=== PATIENT | male | born 1995 | race Hispanic/Latino ===

== ENCOUNTER 2016-05-25 15:29 | Emergency (ER) | payer MEDICAID, OTHER ==
[2016-05-25] MEDS ORDERED: ceFAZolin SODIUM 2 GM in DEXTROSE 5 % IN WATER 100 ML IV ONE ×2 (16:59)
--- NOTE | 2016-05-25 16:59 | ERNOTE ---
Upper Extremity HPI - Narrative Date of Service: 05/25/16 - General Extremities Pain Location: arm: right Time Seen by Provider: 05/25/16 16:11 Source: patient, RN notes reviewed, other - Company representatives Exam Limitations: no limitations - Immun/Allergies/Home Medications Allergies/Adverse Reactions: Allergies Allergy/AdvReac Type Severity Reaction Status Date / Time No Known Allergies Allergy Verified 05/25/16 15:37 Home Medications: HOME MEDICATIONS Albuterol Sulfate [Albuterol Sulfate 0.63 MG/3ML] 0.63 mg IH QID PRN 01/08/13 [ Last Taken 02/13/13] HYDROcodone/ACETAMINOPHEN [[place] 5-325] 1 - 2 tab PO Q6H PRN #20 tab 05/25/16 [ Last Taken Unknown] - History of Present Illness Narrative: 20 y/o male ambulator to the ED for a right arm injury that occurred at work just [employer]. 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 He is experiencing pain and swelling from the mid humerus region to the mid forearm region. He also reports several abrasions and a laceration to the upper arm. He is right handed. Date (Duration): 05/25/16 Occurred: just prior to arrival Location of Incident: work Severity: moderate Method of Injury: Reports: other - crushed Associated Symptoms: Denies: tingling, weakness, numbness distally, loss of feeling, loss of power (rt arm) Other Injuries: Reports: none Review of Systems - Review of Systems Constitutional: Present: no symptoms reported EYE: Present: no symptoms reported ENT: Present: no symptoms reported Respiratory: Present: no symptoms reported Cardiology: Present: no symptoms reported Gastrointestinal/Abdominal: Present: no symptoms reported Genitourinary: Present: no symptoms reported Musculoskeletal: Present: muscle pain, joint pain, joint swelling Skin: Present: change in color. Absent: lesions, lumps Neurological: Absent: weakness, numbness, tingling Endocrine: Present: no symptoms reported Hematologic/Lymphatic: Absent: easy bruising, easy bleeding Psych: Present: no symptoms reported - Patient's Past Medical History Patient History - Medical: No pertinent hx Patient History - Cardiac/Respiratory: Asthma Patient History - Cancer: No Hx of Cancer Patient History - Surgical Procedures: No surgical history Patient History - Other: None - Social History Living Situations: home Psych History: No pertinent hx Smoking Status: Never smoker Alcohol Use: none Drug Use: none - Immunizations Immunizations Up to Date: No - unsure of last tetanus Physical Exam - Physical Exam General Appearance: Present: wd/wn, alert, mild distress, anxious Respiratory: Present: no respiratory distress, no accessory muscle use Cardiovascular/Chest: Present: normal peripheral pulses Peripheral Pulses: N=norm/S=strong/W=weak/B=bound/A=absent: Radial (R): Strong, Radial (L): Strong Extremity Exam: Present: decreased range of motion - right elbow, joint swelling - right elbow, extremity edema - moderate edema to right arm - concentrated more in elbow region Neurological Exam: Present: alert, oriented, normal mood/affect, no motor/ sensory deficits Skin Exam: Present: warm/dry, other - numerous abrasions to right arm, laceration to medial aspect of upper arm, several areas of ecchymosis present ED Progress - Vital Signs Patient's Vital Signs:: I have reviewed the patient's vital signs. Vital Signs: Vital Signs 05/25/16 15:32 Temperature 36.3 C L Pulse Rate 94 Respiratory 12 Rate Blood Pressure 145/80 O2 Sat by Pulse 100 Oximetry - X-Ray X-Ray #1 X-Ray: humerus Interpretation: Reviewed by me X-ray Comments: Humerus RT * FINDINGS/IMPRESSION: 1. There is a probable comminuted fracture of the distal humerus centered at the medial epicondyle region, which is better evaluated on the right elbow films of the same day. Please see its report for additional details. The right humeral diaphysis appears to be intact without definable fracture. 2. Joint spaces are grossly unremarkable, as visualized. 3. Soft tissues are grossly normal. Electronically signed by Bill Schaefer M.D.. X-Ray #2 X-Ray: elbow Interpretation: Reviewed by me X-ray Comments: Elbow Complete Min 3 View RT * There is a severely comminuted fracture of the medial epicondyle of the distal humerus, with multiple small fragments, some of which appear to be displaced distally (maximal distal displacement of approximately 2 cm). On the lateral image, there is a questionable lucency at the level of the tip of the olecranon process. Joint spaces are in gross normal alignment without subluxation or dislocation. Mild elevation of the anterior fat pad suggestive of joint effusion. Soft tissue swelling is noted mainly at the medial aspect of the right arm/elbow, with multiple linear area of air lucency within the soft tissue suggestive of laceration. IMPRESSION: 1. Severely comminuted, displaced fracture of the distal humerus at the medial epicondyle. 2. Equivocal lucency seen best on the lateral image suggestive of potential fracture of the tip of the olecranon process versus artifact. 3. Additional comments are as above. Electronically signed by Bill Schaefer M.D.. X-Ray #3 X-Ray: shoulder Interpretation: Reviewed by me X-ray Comments: Right shoulder - no acute fracture or dislocation, AC joint separation suggested X-Ray #4 X-Ray: forearm Interpretation: Reviewed by me X-ray Comments: Right forearm - no radial or ulnar fracture, soft tissue swelling noted, previously identified medial epicondyle fracture present - CT/Ultrasound CT/Ultrasound Narrative: Noncontrast CT of right elbow: IMPRESSION: 1. Severely comminuted fracture and fragmented appearance of the medial epicondyle with multiple displaced fragments as discussed above. There is a 4 x 3 mm crescentic fragment which appears to have been displaced into the medial aspect of the elbow joint space. 2. Nondisplaced fracture of the tip of the olecranon process. 3. Extensive soft tissue injury along the medial aspect of the elbow. Electronically signed by Bill Schaefer M.D.. - Progress/Reassessment Chief Complaint: Upper Extremity Injury/Problem Progress:: Improved Procedures Right Upper Medial Arm Length of Repair/Wound (cm): 1 Wound's Depth/Shape: into subcutaneous, contused tissue, other - eliptical shape Wound Explored: clean, to base, in bloodless field, no foreign body Wound Intervention: irrigated w/saline - 700 ml, debrided minimal Wound Repaired With: sutures Suture Size/Type: 4-0, nylon Number of Sutures: 2 Layer Closure: Simple Wound Dressing: sterile dressing applied, splint applied Complications: Pt luigi procedure well Location: Right elbow Pre-Proc Neuro Vasc Exam: normal Hand-Made Type: ocl Splint: volar - posterior splint Alignment good: Yes Splint applied by: MLP Post-Proc Neuro Vasc Exam: normal Complications: Pt luigi procedure well Departure Clinical Impression: Fracture of distal humerus Qualifiers: Encounter type: initial encounter Fracture type: closed Fracture morphology: other fracture Fracture alignment: displaced Laterality: right Qualified Code(s) : S42.491A - Other displaced fracture of lower end of right humerus, initial encounter for closed fracture Laceration of upper arm Qualifiers: Encounter type: initial encounter Laterality: right Qualified Code(s): S41.111A - Laceration without foreign body of right upper arm, initial encounter Crush injury arm Qualifiers: Encounter type: initial encounter Laterality: right Qualified Code(s): S47.1XXA - Crushing injury of right shoulder and upper arm, initial encounter - Departure Disposition: Home Follow Up Needed Condition: Stable Instructions: Elbow Fracture, Simple Additional Instructions: Keep splint in place Elevate arm whenever able OK to use cold packs but keep dry Tylenol for pain or [place] for more severe pain Follow up with orthopedics as scheduled Referrals: Jay Farah MD [Staff Physician] - Prescriptions: HYDROcodone/ACETAMINOPHEN [[place] 5-325] 1 - 2 tab PO Q6H PRN #20 tab PRN Reason: Pain
[2016-05-25] MEDS ORDERED: DIPHTH,PERTUSS(ACELL),TET VAC 0.5 ML VIAL IM ONE ×2 (17:04→17:56)
[2016-05-25] MEDS ORDERED: ceFAZolin SODIUM 2 GM in DEXTROSE 5 % IN WATER 50 ML IV ONE ×2 (17:15)
[2016-05-25 18:38] VITALS: BP 126/71
== END 2016-05-25 18:38 | disposition home or self-care (01) ==
LOC: ER 15:29
PROC: 0JQD0ZZ Repair Right Upper Arm Subcutaneous Tissue and Fascia, Open Approach (ICD-10-PCS; principal; 2016-05-25)
PROC: 2W38X1Z Immobilization of Right Upper Extremity using Splint (ICD-10-PCS; 2016-05-25)
DX: S42.491A Other displaced fracture of lower end of right humerus, initial encounter for closed fracture (principal); S41.111A Laceration without foreign body of right upper arm, initial encounter; S47.1XXA Crushing injury of right shoulder and upper arm, initial encounter; Z23 Encounter for immunization; W31.89XA Contact with other specified machinery, initial encounter; Y92.63 Factory as the place of occurrence of the external cause; Y99.0 Civilian activity done for income or pay; J45.909 Unspecified asthma, uncomplicated

== ENCOUNTER 2016-05-25 22:02 | Emergency (ER) | payer MEDICAID, OTHER ==
[2016-05-25] MEDS ORDERED: KETOROLAC TROMETHAMINE 30 MG/ML VIAL IV ONE (22:15)
[2016-05-25] MEDS ORDERED: KETOROLAC TROMETHAMINE 30 MG/ML VIAL ONE (22:23)
[2016-05-25] MEDS ORDERED: NORMAL SALINE 1,000 ML IV ONE (22:28)
--- OUTSIDE RECORDS SUMMARY | 2016-05-25 22:28 | XMS REPORT | Continuity of Care Document ---
:1995 Author Organization [facility] ([facility]) Address [address] [place] [address] Phone [phone] Care Team Providers Name Role Phone Unavailable Primary Care Provider Unavailable Source Comments This disclosure is being made pursuant to the Care Everywhere program, applicable federal and state laws, and may not contain all informaitonavailable regarding this patient.[facility] ([facility]) Active Allergies and Adverse Reactions Not on File Current Medications Not on file Active Problems Not on file Most Recent Encounters Date Type Specialty Providers Description 05/25/2016 Hospital Encounter Patient Services Social History Tobacco Use Types Packs/Day Years Used Date Never Assessed Plan of Care Not on file Results from Last 3 Months Not on file
--- NOTE | 2016-05-25 22:42 | ERNOTE ---
Medical Problem HPI - General Chief Complaint: General Assessment Time Seen by Provider: 05/25/16 22:06 Source: patient, family Exam Limitations: no limitations - Immun/Allergies/Home Medications Immunizations: IMMUNIZATION HX Immunizations Up to Date Yes Allergies/Adverse Reactions: Allergies No Known Allergies Allergy (Verified 05/25/16 22:09) Home Medications: HOME MEDICATIONS Albuterol Sulfate [Albuterol Sulfate 0.63 MG/3ML] 0.63 mg IH QID PRN 01/08/13 [ Last Taken 02/13/13] HYDROcodone/ACETAMINOPHEN [[place] 5-325] 1 - 2 tab PO Q6H PRN #20 tab 05/25/16 [ Last Taken Unknown] - History of Present History Narrative: Patient was seen earlier on in our emergency room and diagnosed with fracture of the medial epicondyle of the right elbow. CT of the right elbow reveals air in the joint as read by the orthopedic surgeon. Patient is back in the emergency room as he may need transfer to a facility that does arthroscopies. Planes of persistent pain in the right elbow and continued bleeding and bleeding through the dressing Review of Systems - Review of Systems Constitutional: Present: no symptoms reported EYE: Present: no symptoms reported ENT: Present: no symptoms reported Respiratory: Present: no symptoms reported Cardiology: Present: no symptoms reported Musculoskeletal: Present: See HPI - Patient's Past Medical History Patient History - Medical: No pertinent hx Patient History - Cardiac/Respiratory: Asthma Patient History - Cancer: No Hx of Cancer Patient History - Surgical Procedures: No surgical history Patient History - Other: None - Social History Living Situations: home Psych History: No pertinent hx Smoking Status: Never smoker Alcohol Use: none Drug Use: none - Immunizations Immunizations Up to Date: Yes Physical Exam - Physical Exam General Appearance: Present: wd/wn, alert, no apparent distress Extremity Exam: Present: other - since OCL and dressing was not opened up. Patient's right fingers are warm And do not appear swollen and he has a good right radial pulse however dressing around the right elbow does have blood stains on it. He is able to wiggle his fingers and sensation is intact in the right fingers ED Progress - Vital Signs Patient's Vital Signs:: I have reviewed the patient's vital signs. Vital Signs: Vital Signs 05/25/16 05/25/16 18:37 22:03 Temperature 37.6 C H 36.8 C Pulse Rate 101 H Respiratory 20 Rate Blood Pressure 126/71 121/91 O2 Sat by Pulse 100 Oximetry - Progress/Reassessment Chief Complaint: General Assessment Plan - Plan Plan: Case was discussed with the previous provider Marcela Landin, who in turn discussed this case with Dr. Farah, our orthopedic surgeon. [place] that the CT results revealed air in the right elbow joint and this patient needs arthroscopy. Dr. Mancini at [facility] was consulted in regards to this case and he graciously accepted the patient to their facility. Patient is stable and appropriate to be transferred to [facility] via ambulance. Departure - Departure Clinical Impression: Fracture of elbow, condyle, left, open Disposition: [facility] Condition: Good
[2016-05-25 22:57] VITALS: BP 110/65
== END 2016-05-25 23:05 | disposition short-term general hospital (02) ==
LOC: ER 22:02
DX: S42.461 Displaced fracture of medial condyle of right humerus (principal); W31.89XA Contact with other specified machinery, initial encounter; Y92.63 Factory as the place of occurrence of the external cause; Y99.0 Civilian activity done for income or pay; J45.909 Unspecified asthma, uncomplicated